=== PATIENT | female | born 1935 | race Caucasian/White ===

== ENCOUNTER → 2016-09-05 | Outpatient (CLI) | payer SELFPAY ==
[~2016-09-05] MED LIST: ACTOS PO; ALBUTEROL MININEB NEB; ALLOPURINOL300 MG PO; ALPHAGAN P; ALPHAGAN P10 ML OP; ALPHAGAN P5 ML OU; ANEXSIA 7.5/3251 TA1 PO; ASPIRIN EC81 M1 PO; ASPIRIN PO; ASPIRIN81 M2 PO; ASPIRIN81 MG PO; ATORVASTATIN CALCIUM PO; CALCIUM 500 + D1 TAB PO; CARBIDOPA; CARBIDOPA LEV PO; CARBIDOPA PO; CARBIDOPA-LEVO1 EACH PO; CARBIDOPA-LEVO1 TAB PO; COLCHICINE PO; COLCRYS0.6 M2 PO; COLCRYS0.6 MG PO; COMBIVENT INH14.7 GM INH; COMPAZINE10 MG PO; COREG; FOSAMAX PO; FUROSEMIDE PO; FUROSEMIDE40 MG PO; GLUCOTROL XL PO; HUMALOG MI100 UNIT/5 SUBQ; HUMALOG MIX 75/10 ML SUBQ; K-DUR10 MEQ PO; K-DUR20 ME1 PO; KCL PO; LASIX PO; LEVOTHYROXINE SODIUM PO; LIPITOR PO; LORTAB 10/500 T1 TAB PO; LORTAB 2.5/5001 TAB PO; LORTAB 7.5-5001 TAB PO; LOSARTAN POTASS25 MG PO; LOSARTAN POTASS50 MG PO; LYRICA PO; LYRICA75 MG PO; MEDI-MECLIZINE25 M1 PO; MEDROL PO; METOLAZONE PO; METOLAZONE5 MG PO; MICRO-K PO; MOBIC PO; MULTI VITAMIN1 EACH PO; MULTIPLE VITAMI1 T12; NAPROSYN500 MG PO; NATEGLINIDE60 MG PO; NEXIUM PO; NILSTAT1 ML DOB; NITRO-DUR1 PATCH .1 TD; NITROSTAT0.4 MG SL; NORCO 7.5-3251 EACH PO; NOVOLIN 70100 UNITS/ SUBQ; NOVOLOG100 UNITS/ INJ; NOVOLOG7030 SUBQ; OMEPRAZOLE20 M1 PO; OS-CAL 500 + D500 MG PO; OSCAL; POTASSIUM CHLO10 MEQ PO; POTASSIUM CHLORIDE PO; PREDNISONE PO; PREVACID PO; PRILOSEC PO; PRILOSEC2.5 MG; PRILOSEC20 M1 PO; PRILOSEC20 MG PO; REGLAN PO; REGLAN10 MG PO; SINEMET CR 25-1 EACH PO; SINEMET-25/1001 TAB PO; SYMBICORT INH; SYNTHROID PO; SYNTHROID75 MCG PO; TAMIFLU75 MG PO; TIMOPTIC2.5 ML OP; VENTOLIN5 MG/ML IH; VESICARE PO; VICODIN 5/500 T1 TAB PO; VITAMIN D 4001 UDTAB PO; ZAROXYLYN PO; ZITHROMAX PO; ZYLOPRIM PO; ZYLOPRIM100 MG PO; [UNRECOGNIZED DRUG - OTHER]
--- NOTE | ~2016-09-05 | US37 ---
[facility] A Service of [facility] & [facility] RADIOLOGY TEXT RESULTS PATIENT: DAVID PERALTA LOCATION: [facility] : 33 UNIT #: [id number] AGE: [address]: Tera Hidalgo MD SEX: F ORDER DR: [id number] [facility] [address] [place], [place] [address] [id number] O MR#: [id number] Acc #: [id number] NAME: DAVID PERALTA. : 1935 SEX: F STUDY DATE/TIME: 09/05/2016 15:35 UNIT: [facility] ROOM: STUDY DESCRIPTION: US Carotid W/Doppler Bilateral Attending Physician: Tera Hidalgo M.D. Referring Physician: Tera Hidalgo M.D. Ordering Physician: Tera Hidalgo M.D. Primary Care Physician: Tg Naqvi M.D. MEDICAL IMAGING REPORT This report is preliminary unless electronic signature is present EXAM Bilateral carotid duplex HISTORY Carotid stenosis with dizziness, syncope, status post left carotid endarterectomy one year ago. FINDINGS There is extensive plaque noted in the right carotid bifurcation, which appears heterogeneous and irregular and echogenic. It also appears to be occlusive, as there is no flow visualized in the internal carotid artery. The right common carotid artery peak velocity is 37 cm/second. The right internal carotid artery peak velocity is 187/68 cm/second at the proximal aspect, but no flow is seen at the middle distal portions. The right external carotid artery has a peak velocity of 379 cm/second and vertebral artery 117 cm/second. The right ICA:CCA is 5.0. The left common carotid artery has patent flow as seen throughout the left common carotid, internal carotid, and external carotid arteries. There is some regular-appearing, heterogeneous plaque seen in the proximal aspect of the left common carotid artery, but no significant disease is noted in the carotid bifurcation or internal carotid artery. The left common carotid artery peak velocity is 46 cm/second. The left internal carotid artery peak systolic/end diastolic velocities are: Proximal 80/24 cm/second, mid 140/44 cm/second, distal 115/37 cm/second. The left external carotid artery peak velocity is 98 cm/second, vertebral artery 24 cm/second. The left ICA:CCA is 3.0. IMPRESSION 1. This is an abnormal study. 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 No distal flow is seen in the mid [facility] RADIOLOGY TEXT RESULTS PATIENT: DAVID PERALTA LOCATION: [facility] : 33 UNIT #: [id number] AGE: [address]: Tera Hidalgo MD SEX: F ORDER DR: distal internal carotid artery. The right external carotid artery appears to have a high-grade stenosis. 2. The left carotid artery, status post carotid endarterectomy, appears widely patent. By duplex criteria, there is a 50-69% stenosis, which represents an increase from the 12/2015 study. However, based on B-mode imaging, it does not appear to be this severe. 3. Vertebral flow is antegrade, bilaterally. Dictated by... Blake Sanchez M.D. THIS IS AN ELECTRONICALLY VERIFIED REPORT Blake Sanchez M.D. at 09/09/2016 4:05 PM AC/to TD: 09/08/2016 16:58 JOB #: [id number] MEDICAL IMAGING REPORT Page 1 of 1 COPY
== END | disposition home or self-care (01) ==
LOC: CNIV 15:02
DX: I65.23 Occlusion and stenosis of bilateral carotid arteries (principal); E78.00 Pure hypercholesterolemia, unspecified; I73.9 Peripheral vascular disease, unspecified; E11.9 Type 2 diabetes mellitus without complications; R93.1 Abnormal findings on diagnostic imaging of heart and coronary circulation
CPT/HCPCS: 93880

== ENCOUNTER → 2016-09-19 | Outpatient (CLI) | payer OTHER ==
[2016-09-19 17:07] LABS: GLOM FILT RATE Estimated 52.4 mL/min (>60)
== END | disposition home or self-care (01) ==
LOC: CLAB 15:24
PROVIDERS: Registered Nurse
DX: I65.23 Occlusion and stenosis of bilateral carotid arteries (principal)
CPT/HCPCS: 36415; 82565; 84520

== ENCOUNTER 2016-09-28 13:55 | Emergency (ER) | payer OTHER ==
[~2016-09-28] VITALS: Ht 165.1 cm; Wt 66.2 kg
--- NOTE | ~2016-09-28 | CR243 ---
[facility] A Service of [facility] & [facility] RADIOLOGY TEXT RESULTS PATIENT: DAVID PERALTA LOCATION: [facility] : 33 UNIT #: [id number] AGE: [address]: Kellen Bolivar MD SEX: F ORDER DR: [id number] [facility] [address] [place], [place] [address] [id number] E MR#: [id number] Acc #: [id number] NAME: DAVID PERALTA. : 1935 SEX: F STUDY DATE/TIME: 09/28/2016 16:47 UNIT: [facility] ROOM: STUDY DESCRIPTION: CR Thoracic Spine 3 Views Attending Physician: Kellen Bolivar M.D. Ordering Physician: Kellen Bolivar M.D. Primary Care Physician: Tg Naqvi M.D. MEDICAL IMAGING REPORT This report is preliminary unless electronic signature is present EXAM Thoracic spine series HISTORY Right rib pain, cough, mid back pain 2 days' duration. FINDINGS AP, lateral, swimmer's views of the thoracic spine are presented. Normal bony mineralization. No traumatic fracture or malalignment. Vertebral body heights within normal limits. Mild intervertebral disc space narrowing lower thoracic spine and at thoracolumbar junction. Multifocal endplate marginal osteophyte formations. Status post median sternotomy and CABG. The visualized ribs are intact. Central lung zones clear. Mild cardiac enlargement. Prior cholecystectomy. Visualized bowel gas pattern normal. Degenerative changes in the visualized cervical and lumbar spine. Dictated by... Iftikhar Sal M.D. THIS IS AN ELECTRONICALLY VERIFIED REPORT Iftikhar Sal M.D. at 09/29/2016 3:16 PM PANCHO/pippa TD: 09/28/2016 21:40 JOB #: [id number] MEDICAL IMAGING REPORT Page 1 of 1 COPY
--- NOTE | ~2016-09-28 | CR211 ---
[facility] A Service of [facility] & [facility] RADIOLOGY TEXT RESULTS PATIENT: DAVID PERALTA LOCATION: [facility] : 33 UNIT #: [id number] AGE: [address]: Kellen Bolivar MD SEX: F ORDER DR: [id number] [facility] [address] [place], [place] [address] [id number] E MR#: [id number] Acc #: [id number] NAME: DAVID PERALTA. : 1935 SEX: F STUDY DATE/TIME: 09/28/2016 16:41 UNIT: [facility] ROOM: STUDY DESCRIPTION: CR Ribs Uni 2 View W PA Ch Rt Attending Physician: Kellen Bolivar M.D. Ordering Physician: Kellen Bolivar M.D. Primary Care Physician: Tg Naqvi M.D. MEDICAL IMAGING REPORT This report is preliminary unless electronic signature is present EXAM Right rib series 09/28/2016 HISTORY Pain 2 days' duration, right rib pain, cough, mid back pain. FINDINGS AP radiograph of chest presented with AP and oblique radiographs of the right ribs. No acute fracture. The patient is status post median sternotomy and CABG. Mild cardiac enlargement. The lungs are well inflated without evidence of acute infectious or inflammatory disease, pleural effusion or pneumothorax. No suspicious nodule. Calcified granulomata right lung base. Status post cholecystectomy. The visualized bowel gas pattern is normal. Dictated by... Iftikhar Sal M.D. THIS IS AN ELECTRONICALLY VERIFIED REPORT Iftikhar Sal M.D. at 09/29/2016 3:16 PM PANCHO/pippa TD: 09/28/2016 21:30 JOB #: [id number] MEDICAL IMAGING REPORT Page 1 of 1 COPY
== END 2016-09-28 18:44 | disposition home or self-care (01) ==
LOC: CED 13:55
DX: R07.81 Pleurodynia (principal); Z88.8 Allergy status to other drugs, medicaments and biological substances; Z88.5 Allergy status to narcotic agent
CPT/HCPCS: 71101; 72072; 99283

== ENCOUNTER → 2016-10-21 | Outpatient (CLI) | payer OTHER ==
--- NOTE | ~2016-10-21 | CT23 ---
[facility] A Service of [facility] & [facility] RADIOLOGY TEXT RESULTS PATIENT: DAVID PERALTA [facility] UNIT #: [id number] AGE: [address]: Tera Hidalgo MD SEX: F ORDER DR: [id number] [facility] [address] [place], [place] [address] [id number] O MR#: [id number] [facility] #: [id number] NAME: DAVID PERALTA : 1935 SEX: F STUDY DATE/TIME: 10/21/2016 10:59 UNIT: [facility] ROOM: STUDY DESCRIPTION: CT Angio Neck Attending Physician: Tera Hidalgo M.D. Ordering Physician: Tera Hidalgo M.D. Primary Care Physician: Tg Naqvi M.D. MEDICAL IMAGING REPORT This report is preliminary unless electronic signature is present EXAM CT head and neck with 3D reconstructions. History: preop surgery for right carotid stenosis. Patient is passing out for 2 months. History of left carotid surgery. COMPARISON Carotid Doppler ultrasound 09/08/2016. PROCEDURE The patient was given 100 mL of Isovue 370 and spiral imaging was performed from the aortic arch through the brain. 3-D reconstructions were generated. NASCET criteria was utilized. This CT exam was performed with one or more of the following radiation dose reduction techniques: automatic exposure control, adjustment of mA and/or kV according to patient size, and iterative reconstruction. FINDINGS Lung apices are clear. Thyroid gland and parotid glands are normal. Submandibular glands are small or absent. There is bilateral generalized atrophy throughout the brain. No focal lesions are identified. No neck masses are identified. VASCULAR FINDINGS: The aortic arch is normal in size. The great vessels are patent with a shared origin of the common carotid artery and brachiocephalic artery. The right vertebral artery arises from the subclavian artery. There is calcified plaque near its origin, but no definite or severe stenosis is visible. Left vertebral artery does appear to have an occlusion at its proximal portion. It is reconstituted but is very small. Needs vessels united to form the basilar artery. There is calcified plaque in the brachiocephalic artery and in the proximal common STS. [facility] A Service of [facility] & [facility] RADIOLOGY TEXT RESULTS PATIENT: DAVID PERALTA [id number] UNIT #: [id number] AGE: [address]: Tera Hidalgo MD SEX: F ORDER DR: carotid artery there is calcified and noncalcified plaque. At the carotid bifurcation there is dense calcified plaque that is severely narrowing the internal carotid artery. There appears to be string-like lumen running through this area and more distal common carotid artery is patent. It is located very medially in front of the cervical spine. There are calcified plaques in the distal internal carotid artery causing less than 20% diameter stenosis and in the cavernous portion there is some calcified plaque formation. On the left side the patient has had an endarterectomy in the common carotid artery and that area is patent and the proximal internal carotid artery is patent without any significant stenosis. There is some distal calcified plaques in the internal carotid artery and in the cavernous portion without significant stenosis. There is also some proximal common carotid artery plaque without significant stenosis. Otherwise the external carotid artery has a high-grade stenosis. The basilar artery and posterior cerebral arteries are normal in appearance. The middle and anterior cerebral arteries are normal in appearance. There is an anterior communicating artery present. IMPRESSION 1. Carotid endarterectomy on the left without significant stenosis in the distal common or proximal internal iliac arteries. There are minimal plaques in the proximal common carotid artery on the left and in the distal internal carotid artery without significant stenosis. 2. On the right side there is marked calcified and some noncalcified plaque formation in the proximal internal carotid artery and high-grade stenosis. The ultrasound done in August suggested there was an occlusion there, but there is no occlusion. There is definitely a string of contrast through the stenosis, at least 70%-80% or greater, but then the internal carotid artery has a very medial course beyond the area of stenosis which may be why it was difficult to see on ultrasound. The more distal internal carotid artery is normal except for some calcified plaque distally as well as in the cavernous portion without significant stenosis. 3. High-grade stenosis of the right external carotid artery. 4. 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 It is reconstituted in the lower neck. 5. The intracranial circulation appears normal. There is an anterior communicating artery present. No posterior communicating arteries are visible. 6. No internal findings are noted except for small or absent submandibular gland. There is generalized atrophy. Dictated by... Curry Hurley M.D. THIS IS AN ELECTRONICALLY VERIFIED REPORT [facility] A Service of [facility] / [facility] RADIOLOGY TEXT RESULTS PATIENT: DAVID PERALTA LOCATION: [facility] : 33 UNIT #: [id number] AGE: [address]: Tera Hidalgo MD SEX: F ORDER DR: Curry Hurley M.D. at 10/22/2016 9:14 AM FEL/gz TD: 10/22/2016 07:58 JOB #: [id number] MEDICAL IMAGING REPORT Page 1 of 1 COPY
--- NOTE | ~2016-10-21 | CT17 ---
[facility] A Service of [facility] & [facility] RADIOLOGY TEXT RESULTS PATIENT: DAVID PERALTA [facility] UN[facility] #: [id number] AGE: [address]: Tera Hidalgo MD SEX: F ORDER DR: [id number] [facility] [address] [place], [place] [address] [id number] O MR#: [id number] Acc #: [id number] NAME: DAVID PERALTA : 1935 SEX: F STUDY DATE/TIME: 10/21/2016 10:59 UNIT: [facility] ROOM: STUDY DESCRIPTION: CT Angio Head Attending Physician: Tera Hidalgo M.D. Ordering Physician: Tera Hidalgo M.D. Primary Care Physician: Tg Naqvi M.D. MEDICAL IMAGING REPORT This report is preliminary unless electronic signature is present EXAM CTA head. HISTORY Preop surgery for right carotid stenosis. Patient is passing out for 2 months. History of left carotid surgery. FINDINGS Please see CTA neck for full report. Dictated by... Curry Hurley M.D. THIS IS AN ELECTRONICALLY VERIFIED REPORT Curry Hurley M.D. at 10/30/2016 7:32 AM JCARLOS/laurence TD: 10/22/2016 07:58 JOB #: [id number] MEDICAL IMAGING REPORT Page 1 of 1 COPY
== END | disposition home or self-care (01) ==
LOC: CCAT 09:28 → CSSDAY 09:28
DX: I65.23 Occlusion and stenosis of bilateral carotid arteries (principal); I65.02 Occlusion and stenosis of left vertebral artery; Z98.890 Other specified postprocedural states
CPT/HCPCS: 70496; 70498; 96360; 96361; Q9967